=== PATIENT | female | born 1995 | race Caucasian/White ===

== ENCOUNTER 2016-11-05 04:58 | Emergency (ER) | payer OTHER ==
[~2016-11-05] VITALS: Ht 160 cm; Wt 61.4 kg
[2016-11-05 05:03] VITALS: BP 100/67
== END 2016-11-05 06:04 | disposition home or self-care (01) ==
LOC: ED 05:56
DX: J02.0 Streptococcal pharyngitis (principal)
CPT/HCPCS: 99283